=== PATIENT | male | born 1985 | race Caucasian/White ===

== ENCOUNTER 2017-01-10 13:53 | Emergency (ER) | payer SELFPAY ==
[~2017-01-10] VITALS: Ht 170.2 cm; Wt 81.8 kg
[~2017-01-10 13:53] MED LIST: KETOROLAC10 MG PO; NORCO 325 MG-51 TAB PO
[2017-01-10 15:25] VITALS: BP 117/65
== END 2017-01-10 15:32 | disposition home or self-care (01) ==
LOC: ED 13:53
DX: S62.336A Displaced fracture of neck of fifth metacarpal bone, right hand, initial encounter for closed fracture (principal); W22.8XXA Striking against or struck by other objects, initial encounter

== ENCOUNTER 2017-06-21 09:40 | Emergency (ER) | payer SELFPAY ==
[~2017-06-21] VITALS: Ht 170.2 cm; Wt 77.3 kg
[2017-06-21 11:13] VITALS: BP 102/63
== END 2017-06-21 11:23 | disposition home or self-care (01) ==
LOC: ED 09:40
DX: S90.02XA Contusion of left ankle, initial encounter (principal); W22.8XXA Striking against or struck by other objects, initial encounter

== ENCOUNTER 2017-09-12 22:49 | Emergency (ER) | payer SELFPAY ==
[~2017-09-12] VITALS: Ht 170.2 cm; Wt 72.7 kg
[2017-09-12 23:10] VITALS: BP 176/90
[2017-09-12 23:53] LABS: ALBUMIN 4.5 g/dL (3.5-5.0); ALT/SGPT 39 U/L (21-72); AST-SGOT 30 U/L (17-59); BUN/CREATININE RATIO 23.1 (6.0-26.0); CARBON DIOXIDE 29 mmol/L (22-30); GLUCOSE 102 mg/dL (75-110); POTASSIUM 3.5 mmol/L (3.6-5.0); SODIUM 141 mmol/L (137-145); TOTAL BILIRUBIN 1.2 mg/dL (0.2-1.3)
[2017-09-12 23:55] LABS: EOS # 0.1 (0.04-0.40); EOS % 1.2 % (0.0-4.0); HEMATOCRIT 45.3 % (42.0-52.0); HEMOGLOBIN 15.7 g/dL (13.5-18.0); LYMPH# 3.4 (1.50-4.00); MEAN CELL VOLUME 89 fl (78-100); MEAN CORPUSCULAR HEMOGLOBIN 31 pg (27-31); MEAN CORPUSCULAR HGB CONC 35 g/dL (33-37); MEAN PLATELET VOLUME 9.6 fl (7.4-10.4); MONO # 0.7 (0.20-0.80); NEU # 6.7 (1.40-6.50); PLATELET COUNT 271 K/mm3 (130-400); RED BLOOD COUNT 5.11 M/mm3 (4.20-5.60); RED CELL DISTRIBUTION WIDTH 14.5 % (11.5-14.5); WHITE BLOOD COUNT 10.9 K/mm3 (4.8-10.8)
[2017-09-13 00:02] LABS: ACETAMINOPHEN < 4 ug/mL (10-30); ALCOHOL IN-HOUSE < 10 mg/dL
[2017-09-13 00:42] LABS: URINE APPEARANCE CLEAR; URINE BILIRUBIN NEGATIVE (NEGATIVE); URINE COLOR YELLOW; URINE GLUCOSE NEGATIVE (NEGATIVE); URINE KETONE 1+ (NEGATIVE); URINE PROTEIN(semi-quant) NEGATIVE (NEGATIVE); URINE UROBILINOGEN 4 mg/dL (NORMAL)
[2017-09-13 00:43] LABS: URINE BLOOD TRACE (NEGATIVE); URINE LEUKOCYTE ESTERASE TRACE (NEGATIVE); URINE MUCUS PRESENT (NOT PRESENT); URINE NITRATE NEGATIVE (NEGATIVE)
== END 2017-09-13 00:10 | disposition left against medical advice (07) ==
LOC: ED 22:49
PROVIDERS: Family Medicine
DX: R45.851 Suicidal ideations (principal); Z53.21 Procedure and treatment not carried out due to patient leaving prior to being seen by health care provider

== ENCOUNTER 2019-01-16 19:00 | Emergency (ER) | payer BC ==
[~2019-01-16] VITALS: Ht 175.3 cm; Wt 70.5 kg
[2019-01-16] MEDS ORDERED: CEPHALEXIN500 M1 PO (19:44)
[2019-01-16] MEDS ORDERED: TRAMADOL 50 MG TAB PO (19:44)
[2019-01-16 20:00] VITALS: BP 142/72
== END 2019-01-16 20:00 | disposition home or self-care (01) ==
LOC: ED 19:00
DX: K02.9 Dental caries, unspecified (principal); Z88.0 Allergy status to penicillin; F17.210 Nicotine dependence, cigarettes, uncomplicated

== ENCOUNTER 2019-05-01 14:47 | Emergency (ER) | payer SELFPAY ==
[~2019-05-01] VITALS: Ht 170.2 cm; Wt 81.8 kg
[~2019-05-01 14:47] MED LIST changes: +CEPHALEXIN500 M1 PO; +TRAMADOL 50 MG TAB PO
[2019-05-01] MEDS ORDERED: NORCO 325 MG-7.1 TA1 PO (15:28)
[2019-05-01] MEDS ORDERED: CLEOCIN HCL300 MG PO (15:28)
[2019-05-01 15:40] VITALS: BP 122/78
== END 2019-05-01 15:38 | disposition home or self-care (01) ==
LOC: ED 14:47
DX: K02.9 Dental caries, unspecified (principal); K04.7 Periapical abscess without sinus; F41.9 Anxiety disorder, unspecified; F32.9 Major depressive disorder, single episode, unspecified; Z88.0 Allergy status to penicillin

== ENCOUNTER 2020-01-05 04:08 | Emergency (ER) | payer SELFPAY ==
[~2020-01-05 04:08] MED LIST changes: +CLEOCIN HCL300 MG PO; +NORCO 325 MG-7.1 TA1 PO; +OMEPRAZOLE40 MG PO; +PREDNISONE1 MG PO
[2020-01-05 04:54] LABS: EOS # 0.1 (0.04-0.40); EOS % 0.4 % (0.0-4.0); HEMATOCRIT 46.2 % (42.0-52.0); HEMOGLOBIN 15.8 g/dL (13.5-18.0); LYMPH# 2.4 (1.50-4.00); MEAN CELL VOLUME 88 fl (78-100); MEAN CORPUSCULAR HEMOGLOBIN 30 pg (27-31); MEAN CORPUSCULAR HGB CONC 34 g/dL (33-37); MEAN PLATELET VOLUME 9.7 fl (7.4-10.4); MONO # 0.9 (0.20-0.80); PLATELET COUNT 252 K/mm3 (130-400); RED BLOOD COUNT 5.25 M/mm3 (4.20-5.60); RED CELL DISTRIBUTION WIDTH 14.9 % (11.5-14.5); WHITE BLOOD COUNT 14.2 K/mm3 (4.8-10.8)
[2020-01-05 04:56] LABS: NEU # 10.7 (1.40-6.50)
[2020-01-05 05:01] LABS: ALBUMIN 4.1 g/dL (3.5-5.0); POTASSIUM 3.5 mmol/L (3.5-5.1)
[2020-01-05 05:02] LABS: CALCIUM 8.5 mg/dL (8.3-10.5)
[2020-01-05 05:04] LABS: TOTAL PROTEIN 6.9 g/dL (6.4-8.3)
[2020-01-05 05:05] LABS: TOTAL BILIRUBIN 0.4 mg/dL (0.2-1.2)
[2020-01-05] MEDS ORDERED: TRIAMCINOLONE AC0.13 TP (08:15)
[2020-01-05] MEDS ORDERED: PREDNISONE10 MG PO (08:15)
[2020-01-05] MEDS ORDERED: PEPCID AC20 M2 PO (08:15)
[2020-01-05] MEDS ORDERED: CARAFATE 1GM1 G PO (08:15)
[2020-01-05] MEDS ORDERED: PRILOSEC 20MG20 MG PO (08:15)
[2020-01-05 08:25] VITALS: BP 120/61
== END 2020-01-05 08:25 | disposition home or self-care (01) ==
LOC: ED 04:08
PROVIDERS: Physician Assistant
DX: L50.0 Allergic urticaria (principal); K20.9 Esophagitis, unspecified; Z88.0 Allergy status to penicillin; Z79.52 Long term (current) use of systemic steroids; Z79.899 Other long term (current) drug therapy
CPT/HCPCS: J2930; Q9967

== ENCOUNTER 2020-04-26 00:31 | Emergency (ER) | payer SELFPAY ==
[~2020-04-26 00:31] MED LIST changes: +CARAFATE 1GM1 G PO; +PEPCID AC20 M2 PO; +PREDNISONE10 MG PO; +PRILOSEC 20MG20 MG PO; +TRIAMCINOLONE AC0.13 TP
[2020-04-26] MEDS ORDERED: SEROQUEL 2525 MG/TAB PO (01:15)
[2020-04-26] MEDS ORDERED: KLONOPIN 0.5MG0.5 MG PO (01:16)
[2020-04-26 02:24] LABS: EOS # 0.1 (0.04-0.40); EOS % 1.3 % (0.0-4.0); HEMATOCRIT 45.2 % (42.0-52.0); HEMOGLOBIN 15.4 g/dL (13.5-18.0); LYMPH# 2.8 (1.50-4.00); MEAN CELL VOLUME 87 fl (78-100); MEAN CORPUSCULAR HEMOGLOBIN 30 pg (27-31); MEAN CORPUSCULAR HGB CONC 34 g/dL (33-37); MEAN PLATELET VOLUME 9.5 fl (7.4-10.4); MONO # 0.4 (0.20-0.80); NEU # 5.8 (1.40-6.50); PLATELET COUNT 207 K/mm3 (130-400); RED BLOOD COUNT 5.17 M/mm3 (4.20-5.60); RED CELL DISTRIBUTION WIDTH 14.1 % (11.5-14.5); WHITE BLOOD COUNT 9.2 K/mm3 (4.8-10.8)
[2020-04-26 02:30] LABS: ALBUMIN 4.3 g/dL (3.5-5.0); POTASSIUM 3.6 mmol/L (3.5-5.1)
[2020-04-26 02:31] LABS: SODIUM 146 mmol/L (136-145)
[2020-04-26 02:32] LABS: CALCIUM 8.7 mg/dL (8.3-10.5)
[2020-04-26 02:33] LABS: GLUCOSE 98 mg/dL (75-110); TOTAL PROTEIN 7.2 g/dL (6.4-8.3)
[2020-04-26 02:34] LABS: CARBON DIOXIDE 24 mmol/L (22-29)
[2020-04-26 02:35] LABS: TOTAL BILIRUBIN 1.3 mg/dL (0.2-1.2)
[2020-04-26 02:36] LABS: ALCOHOL IN-HOUSE 209 mg/dL (<10)
[2020-04-26 02:38] LABS: AST-SGOT 22 U/L (5-34)
[2020-04-26 02:40] LABS: ALT/SGPT 20 U/L (0-55)
[2020-04-26 02:46] LABS: ACETAMINOPHEN < 1 ug/mL
[2020-04-27 00:55] VITALS: BP 115/65
== END 2020-04-27 00:56 | disposition home or self-care (01) ==
LOC: ED 00:31
PROVIDERS: Physician Assistant
DX: F39 Unspecified mood [affective] disorder (principal); T14.91XA Suicide attempt, initial encounter; F10.10 Alcohol abuse, uncomplicated; F12.10 Cannabis abuse, uncomplicated; F14.10 Cocaine abuse, uncomplicated; Z20.828 Contact with and (suspected) exposure to other viral communicable diseases; Z88.0 Allergy status to penicillin; Z88.1 Allergy status to other antibiotic agents; X78.1XXA Intentional self-harm by knife, initial encounter
CPT/HCPCS: J7030

== ENCOUNTER 2021-10-30 09:44 | Emergency (ER) | payer SELFPAY ==
[~2021-10-30] VITALS: Ht 170.2 cm; Wt 86.7 kg
[~2021-10-30 09:44] MED LIST changes: +KLONOPIN 0.5MG0.5 MG PO; +SEROQUEL 2525 MG/TAB PO
[2021-10-30] MEDS ORDERED: AMPHETAMINE SAL20 M1 PO (10:16)
[2021-10-30 11:35] VITALS: BP 122/77
== END 2021-10-30 11:50 | disposition home or self-care (01) ==
LOC: ED 09:44
DX: J06.9 Acute upper respiratory infection, unspecified (principal); F17.210 Nicotine dependence, cigarettes, uncomplicated; Z20.822 Contact with and (suspected) exposure to COVID-19

== ENCOUNTER → 2023-10-28 | Outpatient (CLI) | payer OTHER ==
[~2023-10-28] MED LIST changes: +AMPHETAMINE SAL20 M1 PO
== END ==
LOC: RAD 15:20
DX: Q74.0 Other congenital malformations of upper limb(s), including shoulder girdle (principal); M54.2 Cervicalgia